=== PATIENT | female | born 1955 | race Caucasian/White ===

== ENCOUNTER 2018-12-08 21:48 | Inpatient (IN) | payer SELFPAY ==
[2018-12-08 21:54] VITALS: BMI 25.0
--- NOTE | 2018-12-08 22:18 | PDOC ---
History of Present Illness - General Chief Complaint: Pain Stated Complaint: ABD PAIN Time Seen by Provider: 12/08/18 22:17 - History of Present Illness Initial Comments: 12/08/18 22:18 Chad Mcfarlane margaret 63F with PMH HTN presenting with 3 days of nausea, bloating, and postprandial epigastric pain. Patient reports that she has had a new epigastric pain, bloating for the last 3 days, as well as nausea without vomiting. Pain comes and goes and is related to eating, worse after eating with radiation towards the throat but not to the back , also worse at night and when lying down. Denies chest pain, SOB, palpitations. Denies prior history of GERD. No previous cardiac history other than HTN, no DM or other PMH notable. Does not take any medications. No abd surgeries, last BM last night normal, no C/D. Meals this week include rice and shrimp, fried chicken, all of which triggered symptoms. Denies urinary sx, flank pain. NKDA. No medications taken for sx. Denies recent alcohol use, non-smoker, no drug use reported. Past History - Past Medical History Allergies/Adverse Reactions: Allergies Allergy/AdvReac Type Severity Reaction Status Date / Time No Known Allergies Allergy Verified 12/08/18 21:59 Home Medications: Ambulatory Orders Amlodipine Besylate 10 mg PO DAILY 12/09/18 Atenolol [Tenormin] 50 mg PO DAILY 12/09/18 - Psycho Social/Smoking Cessation Hx Smoking History: Never smoked Hx Alcohol Use: No Drug/Substance Use Hx: No Review of Systems - Review of Systems Able to Perform ROS?: Yes Is the patient limited [place]ian proficient: Yes Constitutional: No: Chills, Fever, Weakness HEENTM: No: Blurred Vision, Recent change in vision, Hearing Loss, Throat Pain Respiratory: No: Cough, Shortness of Breath Cardiac (ROS): No: Chest Pain, Lightheadedness, Palpitations ABD/GI: Yes: Nausea, Other (bloating, upper abdominal pain). No: Constipated, Diarrhea, Vomiting : No: Burning, Dysuria, Discharge, Frequency, Flank Pain, Hematuria, Incontinence Musculoskeletal: No: Symptoms Reported Integumentary: No: Symptoms Reported Neurological: No: Symptoms reported Endocrine: No: Symptoms Reported Hematologic/Lymphatic: No: Symptoms Reported All Other Systems: Reviewed and Negative *Physical Exam - Vital Signs Last Vital Signs Temp Pulse Resp BP Pulse Ox 97.8 F 75 19 141/70 99 12/08/18 21:51 12/08/18 21:51 12/08/18 21:51 12/08/18 21:51 12/08/18 21:51 - Physical Exam General Appearance: Yes: Nourished, Appropriately Dressed. No: Apparent Distress HEENT: positive: EOMI, FILIPE, Normal ENT Inspection, Symmetrical, Pharynx Normal , Hearing Grossly Normal. negative: Scleral Icterus (R), Scleral Icterus (L), Rhinorrhea Neck: positive: Supple. negative: Tender, Lymphadenopathy (R), Lymphadenopathy (L) Respiratory/Chest: positive: Lungs Clear, Normal Breath Sounds, Accessory Muscle Use. negative: Respiratory Distress Cardiovascular: positive: Regular Rhythm, Regular Rate. negative: Edema Gastrointestinal/Abdominal: positive: Normal Bowel Sounds, Tender (RUQ, epigastric, +Pappas sign, no rebound/guarding), Soft, Protuberent. negative: Organomegaly, Guarding, Rebound, Hernia Musculoskeletal: positive: Normal Inspection, CVA Tenderness Extremity: positive: Normal Capillary Refill, Normal Inspection, Normal Range of Motion. negative: Tender, Pedal Edema Integumentary: positive: Normal Color, Dry, Warm Neurologic: positive: Fully Oriented, Alert, Normal Mood/Affect, Normal Response ED Treatment Course - LABORATORY CBC & Chemistry Diagram: 12/09/18 10:11 12/09/18 08:45 Medical Decision Making - Medical Decision Making 12/08/18 22:18 Chad Chavez De Amaris margaret 63F with PMH HTN presenting with 3 days of nausea, bloating, and postprandial epigastric pain. Patient presentation of epigastric pain most concerning for AAA vs. pancreatitis vs. CA. However, most consistent with GERD vs. gallbladder pathology such as stones vs. cholangitis vs gallstone pancreatitis. Will evaluate via: ECG CXR CMP CBC lipase CP UA/UC Will give zofran, 1L NS, famotidine, protonix for nausea and epigastric pain. RUQ US for evaluation of gallbladder pathology. Patient afebrile, less likely to be acute cholangitis, more likely biliary colic vs GERD. 12/09/18 02:19 US results show distended gallbladder with stones, positive sono Pappas sign, no wall thickening or pericholecystic fluid, CBD 7mm not dilated for age. WBC is not elevated, patient does not have a fever. However, presence of stones, distension, and positive Pappas sign concerning for cholecystitis until proven otherwise. Requires admission for further evaluation of gallbladder disease and possible surgical planning for cholecystectomy. ECG shows sinus bradycardia., HR 58. Discharge - Discharge Information Problems reviewed: Yes Clinical Impression/Diagnosis: Epigastric pain, Nausea RUQ abdominal tenderness Qualifiers: Presence of rebound: absent Qualified Code(s): R10.811 - Right upper quadrant abdominal tenderness - Follow up/Referral - Patient Discharge Instructions - Post Discharge Activity
--- NOTE | 2018-12-08 22:28 | PDOC ---
Attending Attestation - Resident Resident Name: Hood Olson - ED Attending Attestation I have performed the following: I have examined & evaluated the patient, The case was reviewed & discussed with the resident, I agree w/resident's findings & plan, Exceptions are as noted - HPI HPI: 12/09/18 01:29 Mr Scott Mcfarlane is a 63F with PMH HTN presenting with 3 days of nausea, bloating, and postprandial epigastric pain. Pain is intermittent and is worse after eating Denies chest pain, SOB, palpitations. Denies prior history of GERD. No abd surgeries, last BM last night normal, no C/D. Denies urinary sx, flank pain. NKDA. No medications taken for sx. Denies recent alcohol use, non-smoker, no drug use reported. - Physicial Exam PE: 12/08/18 23:12 GENERAL: The patient is in no acute distress. ENT: Ears normal, nares patent, oropharynx clear without exudates. Moist mucous membranes. NECK: Normal range of motion, supple LUNGS: Breath sounds equal, clear to auscultation bilaterally. No wheezes, and no crackles. HEART:Regular rate and rhythm, normal S1 and S2 without murmur, rub or gallop. ABDOMEN: Soft, nontender, normoactive bowel sounds. EXTREMITIES: Normal range of motion, no edema. NEUROLOGICAL: Cranial nerves II through XII grossly intact. Normal speech. No focal neurological deficits. SKIN: Warm, Dry, normal turgor, no rashes or lesions noted. - Medical Decision Making 12/09/18 01:31 Laboratory Tests 12/08/18 12/08/18 12/08/18 23:40 23:40 23:40 WBC 5.7 Hgb 11.8 Hct 35.2 Plt Count 231 BUN 12.9 Creatinine 0.8 Total Bilirubin 0.4 AST 15 ALT 24 Creatine Kinase 65 Troponin I < 0.02 Lipase 213 U/S pending Signed out to Dr Carias
[2018-12-08] MEDS ORDERED: METOCLOPRAMIDE HCL INJECTION 10 MG/2 ML VIAL IVPB ONE (22:52)
[2018-12-08] MEDS ORDERED: FAMOTIDINE 20 MG/50 ML IVPB 20 MG/50 ML MG IVPB ONE ×2 (22:52→23:21)
[2018-12-08] MEDS ORDERED: SODIUM CHLORIDE 0.9% 500 ML INFUS.BAG IV ONE (22:52)
[2018-12-08] MEDS ORDERED: ONDANSETRON 4 MG/2 ML VIAL IVPB ONE (22:53)
[2018-12-08] MEDS ORDERED: PANTOPRAZOLE SODIUM 40 MG VIAL IVPUSH ONE (22:53)
[2018-12-08] MEDS ORDERED: ONDANSETRON 4 MG/2 ML VIAL ONE (23:21)
[2018-12-08] MEDS ORDERED: PANTOPRAZOLE SODIUM 40 MG/100 ML BAG IVPB ONE (23:21)
[2018-12-08 23:51] LABS: BASO % 1.2 % (0-2.0); EOS % 1.4 % (0-4.5); HEMATOCRIT 35.2 % (32.4-45.2); HEMOGLOBIN 11.8 GM/dL (10.7-15.3); LYMPH % 21.9 % (8-40); MCH 29.5 pg (25.7-33.7); MCHC 33.5 g/dl (32.0-36.0); MEAN CELL VOLUME 88.2 fl (80-96); MEAN PLT VOLUME 10.3 fl (7.5-11.1); MONO % 6.1 % (3.8-10.2); NEUT % 69.4 % (42.8-82.8); PLATELET COUNT 231 K/MM3 (134-434); RBC 3.99 M/mm3 (3.60-5.2); RDW 13.3 % (11.6-15.6); WHITE BLOOD COUNT 5.7 K/mm3 (4.0-10.0)
[2018-12-09] MEDS ORDERED: ONDANSETRON 4 MG/2 ML VIAL IVPUSH ONE (00:08)
[2018-12-09 00:14] LABS: ALBUMIN 3.6 g/dl (3.4-5.0); BILIRUBIN,TOTAL 0.4 mg/dL (0.2-1); BLOOD UREA NITROGEN 12.9 mg/dL (7-18); CALCIUM 8.5 mg/dL (8.5-10.1); CREATININE 0.8 mg/dL (0.55-1.3); POTASSIUM 4.1 mmol/L (3.5-5.1)
[2018-12-09 00:16] LABS: LIPASE 213 U/L (73-393)
--- NOTE | 2018-12-09 04:44 | PN ---
Teaching Attending Note Name of Resident: Delisa Arreola ATTENDING PHYSICIAN STATEMENT I saw and evaluated the patient. I reviewed the resident's note and discussed the case with the resident. I agree with the resident's findings and plan as documented. SUBJECTIVE: Patient is a 63 year old woman with a PMH of HTN presenting with 3 days of nausea, bloating, and postprandial epigastric pain. Pain comes and goes and is related to eating, worse after eating with radiation towards the throat but not to the back, also worse at night and when lying down. No FH of premature CAD. Patient does not take any medications and has not had abdominal surgeries. Last BM was last night and was normal. Meals this week include rice and shrimp, fried chicken, all of which triggered symptoms. Denies vomiting, chest pain, SOB , palpitations, fever, chills, dysuria, frequency, diarrhea, diaphoresis or headache. Denies prior history of GERD. Did not take any medications. No recent travel or sick contacts and did'not eat street or stale food. Denies tobacco use , alcohol or illicit drug abuse. OBJECTIVE: Alert Vital Signs Period Temp Pulse Resp BP Sys/Kay Pulse Ox Last 24 Hr 97.8 F 75 19 141/70 99 HEENT: No Jaundice, eye redness or discharge, PERRLA, EOMI. Normocephalic, atraumatic. External ears are normal and hearing is grossly intact. No nasal discharge. Neck: Supple, nontender. No palpable adenopathy or thyromegaly. No JVD Chest: Good effort. Clear to auscultation and percussion. Heart: Regular. No S3, rub or murmur Abdomen: Not distended, soft, mild RUQ and epigastric tenderness on deep palpation; no HSM. No rebound or guarding. Normal bowel sounds. Ext: Peripheral pulses intact. No leg edema. Skin: Warm and dry. No petechiae, rash or ecchymosis. Neuro: Alert. Oriented x3. CN 2-12 grossly intact. Sensation grossly intact in all four extremities and DTR are symmetric. Psych: Appropriate mood and affect. Good insight. Abnormal Lab Results 12/08/18 23:40 Chloride 112 H Anion Gap 6 L Random Glucose 112 H ASSESSMENT AND PLAN: 1. Cholecystitis - Sonogram shows distended gallbladder with stones and CBD is not dilated. Will get a HIDA scan, treat with IV Zofran, Protonix and Simethicone. Will consult GI and Surgery. Patient is afebrile and does not have leukocytosis - will withhold antibiotics for now. CXR shows cardiomegaly with increased interstitial marking. Will continue comprehensive care for all of patients comorbid conditions. 2. Obesity Counseled on the risks associated with obesity. Will provide patient all the necessary assistance, counseling and positive reinforcement to facilitate weight loss. Consult [facility]. 3. Hypertension - Restart suitable outpatient antihypertensive drugs when clinically appropriate. Revise regimen to ensure [id number] excellent BP control and pre parole counseling aide patient on the injurious effects of uncontrolled hypertension. Nonpharmacologic measures to control hypertension like weight loss , salt restriction and exercise discussed. Importance of adherence to treatment regimen and attainment of normotension emphasized. 4. DVT prophylaxis - SCD 5. Advance directives - Full code
[2018-12-09] MEDS ORDERED: ACETAMINOPHEN 325 MG TABLET (FP) PO PRN (05:55)
--- NOTE | 2018-12-09 06:03 | HP ---
CHIEF COMPLAINT: abdominal pain PCP: HISTORY OF PRESENT ILLNESS: Patient is a 63 y/o female with a history of HTN who presents for abdominal pain. The pain has been going on for two weeks. The pain comes and goes, sometimes it is associated with food but sometimes it is not. She reports she has never had this pain in the past. THe pain is mid epigastric and moves up midsternally and the pain is also in the RUQ, that pain does not radiate. She reports she eats a normal diet. She denies nausea, vomiting, dysuria, hematuria , headache, or shortness of breath. ER course was notable for: (1) (2) (3) Recent Travel: denies PAST MEDICAL HISTORY: HTN PAST SURGICAL HISTORY: C section Social History: Smoking: denies Alcohol: a few beers a week Drugs: denies Allergies No Known Allergies Allergy (Verified 12/08/18 21:59) HOME MEDICATIONS: REVIEW OF SYSTEMS CONSTITUTIONAL: Absent: fever, chills, diaphoresis, generalized weakness, malaise, loss of appetite, weight change HEENT: Absent: rhinorrhea, nasal congestion, throat pain, throat swelling, difficulty swallowing, mouth swelling, ear pain, eye pain, visual changes CARDIOVASCULAR: Absent: chest pain, syncope, palpitations, irregular heart rate, lightheadedness , peripheral edema RESPIRATORY: Absent: cough, shortness of breath, dyspnea with exertion, orthopnea, wheezing, stridor, hemoptysis GASTROINTESTINAL:abdominal pain, Absent: abdominal distension, nausea, vomiting, diarrhea, constipation, melena , hematochezia GENITOURINARY: Absent: dysuria, frequency, urgency, hesitancy, hematuria, flank pain, genital pain MUSCULOSKELETAL: Absent: myalgia, arthralgia, joint swelling, back pain, neck pain SKIN: Absent: rash, itching, pallor HEMATOLOGIC/IMMUNOLOGIC: Absent: easy bleeding, easy bruising, lymphadenopathy, frequent infections ENDOCRINE: Absent: unexplained weight gain, unexplained weight loss, heat intolerance, cold intolerance NEUROLOGIC: Absent: headache, focal weakness or paresthesias, dizziness, unsteady gait, seizure, mental status changes, bladder or bowel incontinence PSYCHIATRIC: Absent: anxiety, depression, suicidal or homicidal ideation, hallucinations. PHYSICAL EXAMINATION Vital Signs - 24 hr 12/08/18 12/09/18 21:51 05:52 Temperature 97.8 F Pulse Rate 75 Pulse Rate [ 73 Right] Respiratory 19 18 Rate Blood Pressure 141/70 Blood Pressure 145/73 [Right Arm] O2 Sat by Pulse 99 100 Oximetry (%) GENERAL: Awake, alert, and fully oriented, in no acute distress. obese HEAD: Normal with no signs of trauma. EYES: Pupils equal, round and reactive to light, extraocular movements intact, EARS, NOSE, THROAT: Moist mucous membranes. LUNGS: Breath sounds equal, clear to auscultation bilaterally. No wheezes, and no crackles. No accessory muscle use. HEART: Regular rate and rhythm, normal S1 and S2 without murmur, rub or gallop. ABDOMEN: Soft,, not distended, normoactive bowel sounds, tendedrness to deep palpation in mid epigastric and RUQ MUSCULOSKELETAL: Normal range of motion at all joints. LOWER EXTREMITIES: 2+ pulses, warm, well-perfused. No calf tenderness. No peripheral edema. SKIN: Warm, dry, normal turgor, no rashes or lesions noted, normal capillary refill. Laboratory Results - last 24 hr ASSESSMENT/PLAN: Patient is a 63 y/o female with a history of HTN who presents for abdominal pain. #abdominal pain - likely 2/2 to cholecystitis - US: distended gallbladder, no wall thickening or pericholecystic fluid, CBD 7 mm not dilated - f/u HIDA - tylenol prn for pain - zofran prn for nausea QTC 400 - f/u surgery - f/u GI #HTN - reconcile meds and then restart DVT PPX - SCD's, AC held in case of any surgery FEN - NPO in setting of abdominal pain and for any possible surgeries DIspo: monitor on med surg Visit type - Emergency Visit Emergency Visit: Yes ED Registration Date: 12/09/18 Care time: The patient presented to the Emergency Department on the above date and was hospitalized for further evaluation of their emergent condition. - New Patient This patient is new to me today: Yes Date on this admission: 12/10/18 - Critical Care Critical Care patient: No ATTENDING PHYSICIAN STATEMENT I saw and evaluated the patient. I reviewed the resident's note and discussed the case with the resident. I agree with the resident's findings and plan as documented. SUBJECTIVE: OBJECTIVE: ASSESSMENT AND PLAN:
[2018-12-09] MEDS ORDERED: PNEUMOC 13-VAL CONJ-DIP CRM/PF 0.5 ML DISP.SYRIN IM ONE (06:56)
[2018-12-09] MEDS: LACTATED RINGERS SOLUTION 1,000 ML IV SCH (09:28)
[2018-12-09] MEDS ORDERED: PNEUMOCOCCAL 23 VACCINE 0.5 ML VIAL IM ONE (10:00)
[2018-12-09] MEDS ORDERED: FLU VACCINE QUAD 60 MCG/0.5 ML (MDV 19-20) IM ONE (10:00)
[2018-12-09 10:28] LABS: ALBUMIN 3.6 g/dl (3.4-5.0); BILIRUBIN,TOTAL 0.7 mg/dL (0.2-1); BLOOD UREA NITROGEN 7.4 mg/dL (7-18); CREATININE 0.8 mg/dL (0.55-1.3); MAGNESIUM 2.5 mg/dL (1.8-2.4); PHOSPHOROUS 3.1 mg/dL (2.5-4.9); POTASSIUM 4.4 mmol/L (3.5-5.1)
[2018-12-09 10:29] LABS: PH,URINE 8.5 (5.0-8.0); URINE APPEARANCE CLEAR; URINE BILIRUBIN NEGATIVE (NEGATIVE); URINE COLOR YELLOW; URINE GLUCOSE (UA) NEGATIVE (NEGATIVE); URINE KETONE NEGATIVE (NEGATIVE); URINE LEUK ESTERASE NEGATIVE (NEGATIVE); URINE NITRITE NEGATIVE (NEGATIVE); URINE PROTEIN NEGATIVE (NEGATIVE); URINE UROBILINOGEN 0.2 mg/dL (0.2-1.0)
--- NOTE | 2018-12-09 11:11 | CONSULT ---
- Consultation REQUESTING PROVIDER: Franklyn MORIN CONSULT REQUEST: We have been asked to surgically evaluate this patient for RUQ abdominal pain. PCP:Daysi Estes HISTORY OF PRESENT ILLNESS: CTSP who is a 63F with who presented with 3 days of progressive nausea, bloating, and postprandial epigastric pain. Pain is intermittent and is worse after eating. No dark urine/light stools; she has never had this before; she denies any other GI//ROLL SETTER c/o's. PMHx: HTN PSHx: none Home Medications Medication Instructions Recorded Atenolol [Tenormin] 50 mg PO DAILY 12/09/18 Allergies Allergy/AdvReac Type Severity Reaction Status Date / Time No Known Allergies Allergy Verified 12/08/18 21:59 REVIEW OF SYSTEMS: CONSTITUTIONAL: Absent: fever, chills, diaphoresis, generalized weakness, malaise, loss of appetite, weight change CARDIOVASCULAR: Absent: chest pain, syncope, palpitations, irregular heart rate, lightheadedness , peripheral edema RESPIRATORY: Absent: cough, shortness of breath, dyspnea with exertion, wheezing, stridor, hemoptysis GASTROINTESTINAL: Present: abdominal pain, abdominal distension, nausea, vomiting. GENITOURINARY: Absent: dysuria, frequency, urgency, hesitancy, hematuria, flank pain, genital pain MUSCULOSKELETAL: Absent: myalgia, arthralgia, joint swelling, back pain, neck pain SKIN: Absent: rash, itching, pallor HEMATOLOGIC/IMMUNOLOGIC: Absent: easy bleeding, easy bruising, lymphadenopathy NEUROLOGIC: Absent: headache, focal weakness, paresthesias, dizziness, unsteady gait, seizure, mental status changes, bladder or bowel incontinence PSYCHIATRIC: Absent: anxiety, depression, suicidal or homicidal ideation, hallucinations. PHYSICAL EXAM: GENERAL: Awake, alert, and fully oriented, in no acute distress. HEAD: Normal with no signs of trauma. EYES: sclera anicteric, conjunctiva clear. NECK: Normal ROM, supple without lymphadenopathy, JVD, or masses. ABDOMEN: Soft, minimal RUQ tenderness, not distended, normoactive bowel sounds, no guarding, no rebound, no masses. No organomegaly. No hernias and/or scars MUSCULOSKELETAL: Normal ROM at all joints. No bony deformities or tenderness. No CVA tenderness. UPPER EXTREMITIES: 2+ pulses, warm, well-perfused. No cyanosis. Cap refill <2 seconds. No peripheral edema. LOWER EXTREMITIES: 2+ pulses, warm, well-perfused. No calf tenderness. No peripheral edema. NEUROLOGICAL: Normal speech, gait not observed. PSYCH: Cooperative. Good eye contact. Appropriate mood and affect. SKIN: Warm, dry, normal turgor, no rashes or lesions noted. Vital Signs Temperature 97.7 F 12/09/18 05:55 Pulse Rate 58 L 12/09/18 05:55 Respiratory Rate 18 12/09/18 06:00 Blood Pressure 153/84 12/09/18 05:55 O2 Sat by Pulse Oximetry (%) 100 12/09/18 06:00 Lab Results WBC 5.7 K/mm3 (4.0-10.0) 12/08/18 23:40 RBC 3.99 M/mm3 (3.60-5.2) 12/08/18 23:40 Hgb 11.8 GM/dL (10.7-15.3) 12/08/18 23:40 Hct 35.2 % (32.4-45.2) 12/08/18 23:40 MCV 88.2 fl (80-96) 12/08/18 23:40 MCHC 33.5 g/dl (32.0-36.0) 12/08/18 23:40 RDW 13.3 % (11.6-15.6) 12/08/18 23:40 Plt Count 231 K/MM3 (134-434) 12/08/18 23:40 Sodium 144 mmol/L (136-145) 12/09/18 08:45 Potassium 4.4 mmol/L (3.5-5.1) 12/09/18 08:45 Chloride 111 mmol/L (98-107) H 12/09/18 08:45 Carbon Dioxide 26 mmol/L (21-32) 12/09/18 08:45 Anion Gap 7 MMOL/L (8-16) L 12/09/18 08:45 BUN 7.4 mg/dL (7-18) 12/09/18 08:45 Creatinine 0.8 mg/dL (0.55-1.3) 12/09/18 08:45 Random Glucose 91 mg/dL (74-106) 12/09/18 08:45 Calcium 9.0 mg/dL (8.5-10.1) 12/09/18 08:45 US reviewed and c/w cholelithiasis and acute cholecystitis IMP: acute cholecystitis/cholelithiasis PLAN: Lap meena possible open 12/10/18; r/b/t/a's d/w the patient in Mongolian and she is amenable to this and will give informed consent; may have clear liquids today and NPO after MN. Continue IVF and IVAB's. Chris Csatle MD FACS
[2018-12-09 11:15] LABS: BASO % 1.3 % (0-2.0); EOS % 1.2 % (0-4.5); LYMPH % 28.4 % (8-40); MCH 30.1 pg (25.7-33.7); MCHC 34.4 g/dl (32.0-36.0); MEAN CELL VOLUME 87.5 fl (80-96); MEAN PLT VOLUME 10.4 fl (7.5-11.1); NEUT % 64.1 % (42.8-82.8); PLATELET COUNT 239 K/MM3 (134-434); RDW 13.5 % (11.6-15.6); WHITE BLOOD COUNT 5.2 K/mm3 (4.0-10.0)
[2018-12-09] MEDS ORDERED: CEFTRIAXONE 1 GM in DEXTROSE 5%-WATER - 50 ML IVPB ONE (11:17)
[2018-12-09] MEDS ORDERED: cefTRIAXone SODIUM 1 GM VIAL ONE (12:44)
[2018-12-09] MEDS ORDERED: DEXTROSE 5%-WATER - 50 ML IVPB ONE (12:44)
--- NOTE | 2018-12-09 15:14 | PN ---
Progress Note, Physician Chief Complaint: Cholecystitis Abdominal Pain History of Present Illness: Previous notes and events reviewed awake and alert NAD sts abdominal pain is improving denies chest pain or SOB - Current Medication List Current Medications: Active Medications Acetaminophen (Tylenol -) 650 mg PO Q4H PRN PRN Reason: PAIN Lactated Ringer's (Lactated Ringers Solution) 1,000 mls @ 75 mls/hr IV ASDIR WILFRED Last Admin: 12/09/18 09:28 Dose: 75 mls/hr Metronidazole (Flagyl 500mg Premixed Ivpb -) 500 mg in 100 mls @ 100 mls/hr IVPB Q6H-IV WILFRED - Objective Vital Signs: Vital Signs Temperature 98.4 F 12/09/18 14:46 Pulse Rate 56 L 12/09/18 14:46 Respiratory Rate 18 12/09/18 14:46 Blood Pressure 135/62 12/09/18 14:46 O2 Sat by Pulse Oximetry (%) 100 12/09/18 09:00 Constitutional: Yes: No Distress, Calm Eyes: Yes: Conjunctiva Clear HENT: Yes: Atraumatic Cardiovascular: Yes: Regular Rate and Rhythm Respiratory: Yes: Regular, CTA Bilaterally Gastrointestinal: Yes: Normal Bowel Sounds, Soft, Tenderness (mild, diffuse) Musculoskeletal: Yes: WNL Extremities: Yes: WNL Edema: No Neurological: Yes: Alert, Oriented Psychiatric: Yes: Alert, Oriented Labs: CBC, BMP 12/09/18 10:11 12/09/18 08:45 Problem List - Problems (1) HTN (hypertension) Assessment/Plan: -Norvasc, Atenolol -cardiac clearance for cholecystectomy Code(s): I10 - ESSENTIAL (PRIMARY) HYPERTENSION (2) Epigastric pain Assessment/Plan: -GI and Surgery on board -Abd US shows gallbladder is distended and contains multiple stones, positive sonographic murphys sign -NPO -IV hydration -Lipase 213 -possible Lap Cholecsytectomy on 12/10/18 -Metronidazole Code(s): R10.13 - EPIGASTRIC PAIN Assessment/Plan see problem list dvt ppx
[2018-12-09] MEDS ORDERED: METOPROLOL TARTRATE 5 MG/5 ML VIAL IVPB PRN (15:16)
--- NOTE | 2018-12-09 16:47 | EKG ---
Test Reason : Blood Pressure : / mmHG Vent. Rate : 058 BPM Atrial Rate : 058 BPM P-R Int : 190 ms QRS Dur : 074 ms QT Int : 408 ms P-R-T Axes : 038 010 015 degrees QTc Int : 400 ms SINUS BRADYCARDIA OTHERWISE NORMAL ECG WHEN COMPARED WITH ECG OF 18-APR-2008 08:33, NO SIGNIFICANT CHANGE WAS FOUND Confirmed by BASHIR MARK MD ([id number]) on 12/09/2018 4:47:25 PM Referred By: Confirmed By:BASHIR MARK MD
--- NOTE | 2018-12-09 17:14 | CONS ---
GASTROINTESTINAL CONSULTATION DATE OF CONSULTATION: DATE OF DICTATION: 12/09/2018 HISTORY: Patient is a 63-year-old female with past medical history of hypertension and section who presents to the hospital with right upper quadrant epigastric abdominal pain, which has been intermittent over the past couple of weeks. The pain is exacerbated with p.o. intake. She denies any nausea or vomiting. No fevers or chills at home and no change in her bowel habit. She has never had an upper endoscopy or colonoscopy in the past. She does deny any melena, hematochezia, or weight loss. She has never had similar symptoms in the past. PAST MEDICAL HISTORY: As per the HPI. PAST SURGICAL HISTORY: As per the HPI. ALLERGIES: No known drug allergies. SOCIAL HISTORY: Does not smoke. Drinks a few beers a week. No drug use. HOME MEDICATIONS: Reviewed. REVIEW OF SYSTEMS: As per the HPI. FAMILY HISTORY: No history of GI or gynecological malignancy. PHYSICAL EXAMINATION: Vital Signs: Temperature 98, pulse 56, blood pressure 135/62, respiratory rate 18, oxygen saturation 100% on room air. General: In no acute distress. HEENT: Anicteric sclerae. Cardiovascular: S1, S2. Regular rate and rhythm. Lungs: Bilaterally clear to auscultation. Abdomen: Tender in the epigastrium and right upper quadrant without rebound or guarding. Extremities: No edema. LABORATORIES: White blood cell count 5.2, hemoglobin 12, hematocrit 35, MCV 87, platelet count 239. Sodium 144, potassium 4.4, BUN 7.4, creatinine 0.8, total bilirubin 0.7, AST 18, ALT 24, alkaline phosphatase 69, lipase 213. She had an ultrasound, which revealed a distended gallbladder with multiple gallstones, positive Pappas sign. Common bile duct is 7 mm. IMPRESSION: Right upper quadrant epigastric abdominal pain with imaging findings suspicious for acute cholecystitis. RECOMMENDATION: N.p.o. IV fluids. We would start this patient on Levaquin and Flagyl therapy. Surgery consultation for potential cholecystectomy. Patient will be followed by GI service. DO WILLIAM BLUE/[id number]
[2018-12-09] MEDS ORDERED: ATENOLOL 50 MG TABLET (FP) PO ONE (18:15)
[2018-12-09] MEDS ORDERED: amLODIPine BESYLATE 10 MG TABLET (FP) PO ONE (18:15)
--- NOTE | 2018-12-10 08:43 | PN ---
Progress Note, Physician Chief Complaint: EVENTS AND NOTES REVIEWED PT IN BED COMFORTABLE NO FEVERS - Current Medication List Current Medications: Active Medications Acetaminophen (Tylenol -) 650 mg PO Q4H PRN PRN Reason: PAIN Amlodipine Besylate (Norvasc -) 10 mg PO DAILY WILFRED Atenolol (Tenormin -) 50 mg PO DAILY WILFRED Lactated Ringer's (Lactated Ringers Solution) 1,000 mls @ 75 mls/hr IV ASDIR WILFRED Last Admin: 12/09/18 09:28 Dose: 75 mls/hr Metronidazole (Flagyl 500mg Premixed Ivpb -) 500 mg in 100 mls @ 100 mls/hr IVPB Q6H-IV WILFRED Last Admin: 12/10/18 03:07 Dose: 100 mls/hr - Objective Vital Signs: Vital Signs Temperature 97.7 F 12/10/18 06:26 Pulse Rate 53 L 12/10/18 06:26 Respiratory Rate 18 12/10/18 06:26 Blood Pressure 124/73 12/10/18 06:26 O2 Sat by Pulse Oximetry (%) 98 12/09/18 21:00 Constitutional: Yes: No Distress Cardiovascular: Yes: WNL Respiratory: Yes: WNL Gastrointestinal: Yes: Tenderness (BUSH SIGN POSITIVE) Genitourinary: Yes: WNL Musculoskeletal: Yes: WNL Extremities: Yes: WNL Edema: No Peripheral Pulses WNL: Yes Integumentary: Yes: WNL Wound/Incision: Yes: Clean/Dry Neurological: Yes: WNL ...Motor Strength: WNL Psychiatric: Yes: WNL Labs: CBC, BMP 12/09/18 10:11 12/09/18 08:45 Problem List - Problems (1) Cholelithiases Code(s): K80.20 - CALCULUS OF GALLBLADDER W/O CHOLECYSTITIS W/O OBSTRUCTION (2) Epigastric pain Code(s): R10.13 - EPIGASTRIC PAIN (3) HTN (hypertension) Code(s): I10 - ESSENTIAL (PRIMARY) HYPERTENSION (4) Nausea Code(s): R11.0 - NAUSEA (5) RUQ abdominal tenderness Code(s): R10.811 - RIGHT UPPER QUADRANT ABDOMINAL TENDERNESS Qualifiers: Presence of rebound: absent Qualified Code(s): R10.811 - Right upper quadrant abdominal tenderness Assessment/Plan PATIENT HAS NO CONTRAINDICATION FOR SURGERY LAPCHOL WITH DR LATHAM PT HAS NO PREVIOUS HX OF SURGERY DVT PROPHYLAXIS OOB TO CHAIR NPO IVF PAIN CONTROL
[2018-12-10] MEDS: LACTATED RINGERS SOLUTION 1,000 ML IV SCH ×2 (08:54→12:15)
[2018-12-10] MEDS ORDERED: BUPIVACAINE HCL/PF 0.5% (5 MG/ML) 30 ML VIAL IJ ONE (09:11)
[2018-12-10] MEDS ORDERED: amLODIPine BESYLATE 10 MG TABLET (FP) PO SCH (10:00)
[2018-12-10] MEDS ORDERED: ATENOLOL 50 MG TABLET (FP) PO SCH (10:00)
[2018-12-10] MEDS ORDERED: ROCURONIUM BROMIDE 50 MG/5 ML SYRINGE ONE (10:02)
[2018-12-10] MEDS ORDERED: fentaNYL CITRATE 250 MCG/5 ML VIAL ONE ×2 (10:02)
[2018-12-10] MEDS ORDERED: DEXAMETHASONE SOD PHOSPHATE 4 MG/1 ML VIAL ONE (10:02)
[2018-12-10] MEDS ORDERED: LIDOCAINE HCL/PF 2% SDV 5ML VIAL ONE (10:02)
[2018-12-10] MEDS ORDERED: KETOROLAC TROMETHAMINE 30 MG/1 ML VIAL ONE (10:02)
[2018-12-10] MEDS ORDERED: ONDANSETRON 4 MG/2 ML VIAL ONE (10:02)
[2018-12-10] MEDS ORDERED: PROPOFOL 20 ML ONE ×2 (10:02)
[2018-12-10] MEDS ORDERED: MIDAZOLAM HCL 2 MG/2 ML SINGLE DOSE VIAL ONE (10:03)
[2018-12-10] MEDS ORDERED: BUPIVACAINE HCL/PF 0.5% (5MG/ML) 10 ML VIAL NR ONE (11:12)
[2018-12-10] MEDS ORDERED: GLYCOPYRROLATE 0.2 MG/1 ML VIAL ONE ×2 (11:20)
[2018-12-10] MEDS ORDERED: NEOSTIGMINE METHYLSULFATE 0.5 MG/1 ML - 10 ML MDV ONE (11:20)
--- NOTE | 2018-12-10 11:23 | OP ---
Operative Note - Note: Operative Date: 12/10/18 Pre-Operative Diagnosis: acute cholecystitis/cholelithiasis Operation: laparoscopic cholecystectomy Findings: acute cholecystitis and cholellithiasis Post-Operative Diagnosis: Same as Pre-op Surgeon: Chris Castle Associate Chemist: Bartolo Nicholas Anesthesiologist/FOREPART ROUNDER: Rory Glynn Anesthesia: General Specimens Removed: gallbladder and contents Estimated Blood Loss (mls): 20 Drains & Tubes with Location: none
--- NOTE | 2018-12-10 11:39 | SURG ---
Surgery Tricot Knitter Note Tricot Knitter: Bartolo Nicholas PA-C Date of Service: 12/10/18 Diagnosis: Acute cholecystitis Procedure: Laproscopic cholecystectomy I was present for the entirety of the operative procedure. For further detail, please refer to operative report. Visit type - Case Type Case Type: ED Admission - Emergency Emergency Visit: Yes ED Registration Date: 12/09/18 Care time: The patient presented to the Emergency Department on the above date and was hospitalized for further evaluation of their emergent condition. - New patient This patient is new to me today: Yes Date on this admission: 12/10/18 - Critical Care Critical Care patient: No
[2018-12-10] MEDS ORDERED: ONDANSETRON 4 MG/2 ML VIAL IVPUSH PRN (11:40)
[2018-12-10] MEDS ORDERED: oxyCODONE HCL 5 MG TABLET PO PRN ×2 (11:40→11:44)
[2018-12-10] MEDS ORDERED: PROMETHAZINE HCL 25 MG/1 ML VIAL IVPB PRN (11:40)
[2018-12-10] MEDS ORDERED: ACETAMINOPHEN 325 MG TABLET (FP) PO PRN (11:50)
--- NOTE | 2018-12-10 11:56 | OP ---
DATE OF OPERATION: 12/10/2018 PREOPERATIVE DIAGNOSIS: Acute cholecystitis and cholelithiasis. POSTOPERATIVE DIAGNOSIS: Acute cholecystitis and cholelithiasis. PROCEDURE: Laparoscopic cholecystectomy. SURGEON: Chris Castle MD RENDERER: Bartolo Nicholas PA-C ANESTHESIA: General. OPERATIVE FINDINGS: Acute cholecystitis and cholelithiasis. The rest of the findings are unremarkable. DESCRIPTION OF PROCEDURE: The patient was placed on the operating room table in supine position. After the induction of general anesthesia, the patient's abdomen was prepped with ChloraPrep and draped in sterile fashion. Time-out was taken and then pneumoperitoneum established above the umbilicus using a Veress needle. Once 15 mm of intra-abdominal pressure was obtained, a 5-mm port was placed at the umbilicus. Additional lateral 5-mm ports and a subxiphoid 12-mm port were placed and laparoscopy carried out, and the previously noted findings were observed. The gallbladder was placed on cephalad and lateral traction, and dissection was begun at the neck of the gallbladder where the peritoneum was opened medially and laterally using blunt and sharp dissection and electrocautery. Dissection continued in the triangle of Calot where the cystic duct was identified coursing from the neck of the gallbladder distally to the common bile duct. It was dissected proximally and distally for length. Similarly, the artery was similarly identified and dissected. A critical view of safety was taken, and then the cystic duct divided proximally and distally using Endo Daniel after it was clipped twice proximally and distally with large hemoclips. The artery was similarly clipped and divided. Hemostasis was checked for and noted to be good and then the gallbladder was removed from the liver bed in a retrograde fashion using electrocautery. Prior to removal from the edge of the liver, hemostasis was again verified and then the gallbladder removed from the edge of the liver, placed in an EndoCatch, and brought out through the subxiphoid port. Pneumoperitoneum was reestablished, hemostasis verified again, and then the 5-mm lateral and subxiphoid ports were removed under laparoscopic vision without evidence of bleeding from the port sites. The umbilical port was removed and the pneumoperitoneum evacuated. All port sites were infiltrated with 0.5% Marcaine and the skin edges closed with 4-0 Biosyn in a subcuticular and continuous fashion. Steri-Strips and Band-Aid dressings were placed and the procedure terminated at this point and the patient aroused from general anesthesia and transferred to the post anesthesia care unit in stable condition awake and alert. ESTIMATED BLOOD LOSS: 20 mL. REPLACEMENTS: Crystalloid. DRAINS: None. SPECIMENS: Gallbladder and contents to pathology. I, Chris Castle, was physically present in the operating room from the time the patient was placed on the operating room table until she was transferred to the post anesthesia care unit in my company. MD DIANA Pedroza/[id number] MTDD
--- NOTE | 2018-12-10 15:08 | PN ---
Progress Note (short form) - Note Progress Note: Called for preop however pt already post op from cholecystectomy for acute cholecystitis. As per report tolerated surgery well from a cardiac standpoint. BP adequately controlled on current regimen. Will see as needed. Please call if there are additional questions.
[2018-12-11 06:35] LABS: HEMATOCRIT 33.5 % (32.4-45.2); HEMOGLOBIN 11.8 GM/dL (10.7-15.3); MCH 30.5 pg (25.7-33.7); MCHC 35.2 g/dl (32.0-36.0); MEAN CELL VOLUME 86.7 fl (80-96); MEAN PLT VOLUME 10.4 fl (7.5-11.1); PLATELET COUNT 242 K/MM3 (134-434); RBC 3.86 M/mm3 (3.60-5.2); RDW 13.4 % (11.6-15.6); WHITE BLOOD COUNT 8.5 K/mm3 (4.0-10.0)
[2018-12-11 06:55] LABS: BLOOD UREA NITROGEN 12.2 mg/dL (7-18); CREATININE 0.8 mg/dL (0.55-1.3); POTASSIUM 4.1 mmol/L (3.5-5.1)
--- NOTE | 2018-12-11 07:45 | PN ---
Progress Note (short form) - Note Progress Note: Surgery POD #1 Lap meena patient seen and examined at bedside. Patient states she is having gas pain but otherwise comfortable. She has been OOB to void and tolerating clears. She denies any CP, SOB, N/V, fever or chills. Vital Signs Temp 98.1 F 12/11/18 06:12 Pulse 57 L 12/11/18 06:12 Resp 18 12/11/18 06:12 BP 147/71 12/11/18 06:12 Pulse Ox 98 12/10/18 21:00 Intake & Output 12/10/18 12/10/18 12/11/18 11:59 23:59 11:59 Intake Total 2200 700 300 Balance 2200 700 300 Intake: IV 2100 500 Lactated Ringers Solution 600 300 1,000 ml @ 75 mls/hr IV ASDIR WILFRED Rx#:[id number] IVPB 100 Oral 200 300 Other: Voiding Method Toilet Toilet CBC, BMP 12/11/18 05:30 12/11/18 05:30 PE: A&Ox3, NAD Unlabored resp on RA ABD: Obese, soft, NT/ND with dressing c/d/i, surrounding tissue intact with no erythema or d/c B/L LE compartments soft, supple and non-tender with +2 Pulses. Problem List - Problems (1) S/P laparoscopic cholecystectomy Assessment/Plan: POD #1 doing well with some gas pain. -Advance diet to regular -Encourage OOB as tolerated, ambulation will help to mitigate gas pain -Encourage daily IS -Simethicone PRN gas pain Code(s): Z90.49 - ACQUIRED ABSENCE OF OTHER SPECIFIED PARTS OF DIGESTIVE TRACT
[2018-12-11] MEDS: amLODIPine BESYLATE 10 MG TABLET (FP) PO SCH (10:18)
[2018-12-11] MEDS: ATENOLOL 50 MG TABLET (FP) PO SCH (10:18)
--- NOTE | 2018-12-11 10:37 | PN ---
Progress Note (short form) - Note Progress Note: 63 F s/p GA for lap meena pt feels well. pain controlled. good result anesthetic care. cont current meds and plan
--- NOTE | 2018-12-11 13:49 | PN ---
Progress Note, Physician Chief Complaint: Cholecystitis Abdominal Pain History of Present Illness: Previous notes and events reviewed awake and alert NAD POD #1 Lap Cholecystectomy complain of feeling "full" denies passing flatus or BM - Current Medication List Current Medications: Active Medications Acetaminophen (Tylenol -) 650 mg PO Q4H PRN PRN Reason: PAIN Amlodipine Besylate (Norvasc -) 10 mg PO DAILY [facility] Last Admin: 12/11/18 10:18 Dose: 10 mg Atenolol (Tenormin -) 50 mg PO DAILY [facility] Last Admin: 12/11/18 10:18 Dose: 50 mg Fentanyl (Sublimaze Injection -) 50 mcg IVPUSH [id number] PRN PRN Reason: PAIN-PACU ORDER X 4 DOSES ONLY Lactated Ringer's (Lactated Ringers Solution) 1,000 mls @ 75 mls/hr IV ASDIR [facility] Last Admin: 12/10/18 12:15 Dose: 75 mls/hr Ondansetron HCl (Zofran Injection) 4 mg IVPUSH Q6H PRN PRN Reason: NAUSEA AND/OR VOMITING Oxycodone HCl (Roxicodone -) 5 mg PO Q4H PRN PRN Reason: PAIN LEVEL 6-10 Last Admin: 12/10/18 20:37 Dose: 5 mg Promethazine HCl (Phenergan Injection -) 12.5 mg IVPB Q6H PRN PRN Reason: NAUSEA-FOR RESCUE AFTER 15 MIN Simethicone (Mylicon -) 80 mg PO Q4H PRN PRN Reason: GAS - Objective Vital Signs: Vital Signs Temperature 98.1 F 12/11/18 06:12 Pulse Rate 57 L 12/11/18 06:12 Respiratory Rate 18 12/11/18 09:00 Blood Pressure 147/71 12/11/18 06:12 O2 Sat by Pulse Oximetry (%) 98 12/11/18 09:00 Constitutional: Yes: No Distress, Calm Eyes: Yes: Conjunctiva Clear HENT: Yes: Atraumatic Cardiovascular: Yes: Regular Rate and Rhythm Respiratory: Yes: Regular, CTA Bilaterally Gastrointestinal: Yes: Normal Bowel Sounds, Soft Musculoskeletal: Yes: WNL Extremities: Yes: WNL Edema: No Wound/Incision: Yes: Dressing Dry and Intact Neurological: Yes: Alert, Oriented Psychiatric: Yes: Alert, Oriented Labs: CBC, BMP 12/11/18 05:30 12/11/18 05:30 Microbiology 12/09/18 10:10 Urine - Urine Clean Catch Urine Culture - Final Normal Urogenital Deepthi Problem List - Problems (1) HTN (hypertension) Assessment/Plan: -Norvasc, Atenolol -low Na diet Code(s): I10 - ESSENTIAL (PRIMARY) HYPERTENSION (2) Epigastric pain Assessment/Plan: -GI and Surgery on board -Abd US shows gallbladder is distended and contains multiple stones, positive sonographic murphys sign -POD #1 Lap cholecystectomy -IV hydration -Lipase 213 -pain control -Simethicone PRN -Colace HS Code(s): R10.13 - EPIGASTRIC PAIN Assessment/Plan see problem list dvt ppx
[2018-12-11] MEDS: SIMETHICONE 80 MG TAB.CHEW (FP) PO PRN ×2 (14:41→21:46)
[2018-12-11] MEDS: LACTATED RINGERS SOLUTION 1,000 ML IV SCH (17:42)
[2018-12-11] MEDS ORDERED: DOCUSATE SODIUM 100 MG CAPSULE (FP) PO SCH (22:00)
[2018-12-12 07:06] LABS: HEMATOCRIT 34.2 % (32.4-45.2); HEMOGLOBIN 11.7 GM/dL (10.7-15.3); MCH 29.9 pg (25.7-33.7); MCHC 34.1 g/dl (32.0-36.0); MEAN CELL VOLUME 87.8 fl (80-96); MEAN PLT VOLUME 10.4 fl (7.5-11.1); PLATELET COUNT 252 K/MM3 (134-434); RDW 13.5 % (11.6-15.6); WHITE BLOOD COUNT 6.9 K/mm3 (4.0-10.0)
[2018-12-12 07:34] LABS: ALBUMIN 3.5 g/dl (3.4-5.0); BILIRUBIN,TOTAL 1.1 mg/dL (0.2-1); BLOOD UREA NITROGEN 16.8 mg/dL (7-18); CALCIUM 8.8 mg/dL (8.5-10.1); CREATININE 0.8 mg/dL (0.55-1.3); POTASSIUM 3.8 mmol/L (3.5-5.1); TOT PROT 6.6 g/dl (6.4-8.2)
--- NOTE | 2018-12-12 09:32 | DS ---
Physical Examination Vital Signs: Vital Signs Temperature 97.5 F L 12/12/18 06:02 Pulse Rate 63 12/12/18 06:02 Respiratory Rate 18 12/12/18 06:02 Blood Pressure 124/64 12/12/18 06:02 O2 Sat by Pulse Oximetry (%) 97 12/11/18 21:00 Findings/Remarks: Laboratory Tests 12/08/18 12/08/18 12/08/18 23:40 23:40 23:40 WBC 5.7 Corrected WBC (auto) RBC 3.99 Hgb 11.8 Hct 35.2 MCV 88.2 MCH 29.5 MCHC 33.5 RDW 13.3 Plt Count 231 MPV 10.3 Absolute Neuts (auto) 3.9 Neutrophils % 69.4 Lymphocytes % 21.9 Monocytes % 6.1 Eosinophils % 1.4 Basophils % 1.2 Nucleated RBC % 0 Platelet Estimate Platelet Comment Sodium 145 Potassium 4.1 Chloride 112 H Carbon Dioxide 27 Anion Gap 6 L BUN 12.9 Creatinine 0.8 Est GFR (CKD-EPI)AfAm 90.30 Est GFR (CKD-EPI)NonAf 77.91 Random Glucose 112 H Calcium 8.5 Phosphorus Magnesium Total Bilirubin 0.4 AST 15 ALT 24 Alkaline Phosphatase 67 Creatine Kinase 65 Troponin I < 0.02 Total Protein 7.0 Albumin 3.6 Lipase 213 Urine Color Urine Appearance Urine pH Ur Specific [place] Urine Protein Urine Glucose (UA) Urine Ketones Urine Blood Urine Nitrite Urine Bilirubin Urine Urobilinogen Ur Leukocyte Esterase 12/08/18 12/09/18 12/09/18 23:40 08:45 08:45 WBC Cancelled Corrected WBC (auto) Cancelled RBC Cancelled Hgb Cancelled Hct Cancelled MCV Cancelled MCH Cancelled MCHC Cancelled RDW Cancelled Plt Count Cancelled MPV Cancelled Absolute Neuts (auto) Cancelled Neutrophils % Cancelled Lymphocytes % Cancelled Monocytes % Cancelled Eosinophils % Cancelled Basophils % Cancelled Nucleated RBC % Cancelled Platelet Estimate Cancelled Platelet Comment Cancelled Sodium 144 Potassium 4.4 Chloride 111 H Carbon Dioxide 26 Anion Gap 7 L BUN 7.4 Creatinine 0.8 Est GFR (CKD-EPI)AfAm 90.30 Est GFR (CKD-EPI)NonAf 77.91 Random Glucose 91 Calcium 9.0 Phosphorus 3.1 Magnesium 2.5 H Total Bilirubin 0.7 AST 18 ALT 24 Alkaline Phosphatase 69 Creatine Kinase Troponin I Total Protein 7.0 Albumin 3.6 Lipase Cancelled Urine Color Urine Appearance Urine pH Ur Specific [place] Urine Protein Urine Glucose (UA) Urine Ketones Urine Blood Urine Nitrite Urine Bilirubin Urine Urobilinogen Ur Leukocyte Esterase 12/09/18 12/09/18 12/11/18 10:10 10:11 05:30 WBC 5.2 8.5 Corrected WBC (auto) RBC 4.00 3.86 Hgb 12.0 11.8 Hct 35.0 33.5 MCV 87.5 86.7 MCH 30.1 30.5 MCHC 34.4 35.2 RDW 13.5 13.4 Plt Count 239 242 MPV 10.4 10.4 Absolute Neuts (auto) 3.3 Neutrophils % 64.1 Lymphocytes % 28.4 D Monocytes % 5.0 Eosinophils % 1.2 Basophils % 1.3 Nucleated RBC % 0 Platelet Estimate Platelet Comment Sodium Potassium Chloride Carbon Dioxide Anion Gap BUN Creatinine Est GFR (CKD-EPI)AfAm Est GFR (CKD-EPI)NonAf Random Glucose Calcium Phosphorus Magnesium Total Bilirubin AST ALT Alkaline Phosphatase Creatine Kinase Troponin I Total Protein Albumin Lipase Urine Color Yellow Urine Appearance Clear Urine pH 8.5 H Ur Specific [place] 1.009 L Urine Protein Negative Urine Glucose (UA) Negative Urine Ketones Negative Urine Blood Negative Urine Nitrite Negative Urine Bilirubin Negative Urine Urobilinogen 0.2 Ur Leukocyte Esterase Negative 12/11/18 12/12/18 12/12/18 05:30 06:40 06:40 WBC 6.9 Corrected WBC (auto) RBC 3.90 Hgb 11.7 Hct 34.2 MCV 87.8 MCH 29.9 MCHC 34.1 RDW 13.5 Plt Count 252 MPV 10.4 Absolute Neuts (auto) Neutrophils % Lymphocytes % Monocytes % Eosinophils % Basophils % Nucleated RBC % Platelet Estimate Platelet Comment Sodium 142 142 Potassium 4.1 3.8 Chloride 107 108 H Carbon Dioxide 29 29 Anion Gap 7 L 5 L BUN 12.2 16.8 Creatinine 0.8 0.8 Est GFR (CKD-EPI)AfAm 90.30 90.30 Est GFR (CKD-EPI)NonAf 77.91 77.91 Random Glucose 93 108 H Calcium 9.0 8.8 Phosphorus Magnesium Total Bilirubin 1.1 H AST 33 ALT 42 Alkaline Phosphatase 64 Creatine Kinase Troponin I Total Protein 6.6 Albumin 3.5 Lipase Urine Color Urine Appearance Urine pH Ur Specific [place] Urine Protein Urine Glucose (UA) Urine Ketones Urine Blood Urine Nitrite Urine Bilirubin Urine Urobilinogen Ur Leukocyte Esterase Active Medications Generic Name Dose Route Start Last Admin Trade Name Gurvinder PRN Reason Stop Dose Admin Acetaminophen 650 mg 12/10/18 11:50 Tylenol - PO Q4H PRN PAIN Amlodipine Besylate 10 mg 12/11/18 10:00 12/11/18 10:18 Norvasc - PO 10 mg DAILY WILFRED Administration Atenolol 50 mg 12/11/18 10:00 12/11/18 10:18 Tenormin - PO 50 mg DAILY WILFRED Administration Docusate Sodium 300 mg 12/11/18 22:00 12/11/18 21:46 Colace - PO 300 mg HS WILFRED Administration Fentanyl 50 mcg 12/10/18 11:40 Sublimaze Injection - IVPUSH [id number] PRN PAIN-PACU ORDER X 4 DOSES ONLY Ondansetron HCl 4 mg 12/10/18 11:40 Zofran Injection IVPUSH Q6H PRN NAUSEA AND/OR VOMITING Oxycodone HCl 5 mg 12/10/18 11:44 12/10/18 20:37 Roxicodone - PO 5 mg Q4H PRN Administration PAIN LEVEL 6-10 Promethazine HCl 12.5 mg 12/10/18 11:40 Phenergan Injection - IVPB Q6H PRN NAUSEA-FOR RESCUE AFTER 15 MIN Simethicone 80 mg 12/10/18 20:53 12/11/18 21:46 Mylicon - PO 80 mg Q4H PRN Administration GAS Microbiology 12/09/18 10:10 Urine - Urine Clean Catch Urine Culture - Final Normal Urogenital Deepthi Constitutional: Yes: No Distress, Calm Eyes: Yes: Conjunctiva Clear HENT: Yes: Atraumatic Cardiovascular: Yes: Regular Rate and Rhythm Respiratory: Yes: Regular, CTA Bilaterally Gastrointestinal: Yes: Normal Bowel Sounds, Soft Musculoskeletal: Yes: WNL Extremities: Yes: WNL Edema: No Wound/Incision: Yes: Dressing Dry and Intact Neurological: Yes: Alert, Oriented Psychiatric: Yes: Alert, Oriented Labs: CBC, BMP 12/12/18 06:40 12/12/18 06:40 Microbiology 12/09/18 10:10 Urine - Urine Clean Catch Urine Culture - Final Normal Urogenital Deepthi Discharge Summary Problems reviewed: Yes Reason For Visit: CHOLECYSTITIS Current Active Problems Cholelithiases (Acute) Epigastric pain (Acute) HTN (hypertension) (Acute) Nausea (Acute) RUQ abdominal tenderness (Acute) S/P laparoscopic cholecystectomy (Acute) Hospital Course: Patient is a 63 y/o female with past medical history of HTN. She presented to ER with complaints of abdominal pain for 2 weeks. Pain was described as intermittent and associated with food intake. Pain noted to be mid-epigastric and RUQ. US shows cholelithiasis and surgery consult was placed. Patient underwent lap cholecystectomy with no adverse effects. Tolerating PO intake and has BM. Instructed to follow up with PCP in 1 week and Surgery within 7-10 days. Condition: Stable - Instructions Diet, Activity, Other Instructions: Follow up with PCP in 1 week Follow up with Surgery in 1 week continue with medication as prescribed return to ER if develop severe pain, respiratory distress, chest pain, fever Referrals: Chris Castle MD [Staff Physician] - Daysi Estes MD [Staff Physician] - Disposition: HOME - Home Medications Comprehensive Discharge Medication List: Ambulatory Orders Amlodipine Besylate 10 mg PO DAILY 12/09/18 Atenolol [Tenormin] 50 mg PO DAILY 12/09/18 Acetaminophen [Tylenol .Regular Strength -] 650 mg PO Q4H PRN #45 tablet Docusate Sodium [Colace -] 300 mg PO HS #90 capsule 12/12/18 Simethicone [Mylicon -] 80 mg PO Q4H PRN #45 tab.chew 12/12/18
[2018-12-12] MEDS: amLODIPine BESYLATE 10 MG TABLET (FP) PO SCH (10:21)
[2018-12-12] MEDS: ATENOLOL 50 MG TABLET (FP) PO SCH (10:21)
[2018-12-12 10:46] VITALS: BP 136/74; PULSE 64; TEMP 98.5
--- NOTE | 2018-12-13 16:19 | PATH ---
Surgical Pathology Report Patient Name: ARTURO TONG Med. Rec. #: [id number] /Age/Gender: 1955 (Age: 63) / F Account: [id number] Location: [facility] MED/SURG Taken: 12/10/2018 Received: 12/10/2018 Reported: 12/12/2018 Physicians: Daysi Estes M.D. Specimen(s) Received GALLBLADDER Clinical History Cholecystitis Final Diagnosis GALLBLADDER, CHOLECYSTECTOMY: CHRONIC CHOLECYSTITIS AND CHOLELITHIASIS. ONE REACTIVE LYMPH NODE. Electronically Signed Krysten Jimenes M.D. Gross Description Received in formalin, labeled "gallbladder," is a 8.1 x 2.5 x 2.5 cm. gallbladder with a 0.2 cm. in length portion of cystic duct attached. The outer surface varies from smooth to shaggy. A pericystic node measuring 1 cm in greatest dimension is present. The lumen contains with bile and multiple stones, the largest measures 2.0 cm in greatest dimension. The mucosa shows a velvety surface. The wall of the gallbladder measures 0.2cm. in thickness. Exterior Interior Specialist sections are submitted in one cassette. KWS/12/10/2018 sulki/12/10/2018
== END 2018-12-12 10:47 | disposition home or self-care (01) | DRG 263 ==
LOC: JER 21:48 → JERBED 12-09 03:50 → J7W 12-09 06:18
PROVIDERS: ADMIT Internal Medicine; ATTEND Family Medicine
PROC: 0FT44ZZ Resection of Gallbladder, Percutaneous Endoscopic Approach (ICD-10-PCS; principal; 2018-12-10 10:00)
DX: K80.12 Calculus of gallbladder with acute and chronic cholecystitis without obstruction (principal); I10 Essential (primary) hypertension; E66.9 Obesity, unspecified; Z68.25 Body mass index [BMI] 25.0-25.9, adult; I51.7 Cardiomegaly; R10.13 Epigastric pain
CPT/HCPCS: 36415; 71046-TC-FY; 76705-TC; 80048; 80053; 81003; 82550; 83690; 83735; 84100; 84484; 85025; 85027; 87086; 93005; 93010; 94760; 99284-25; G0008; Q2036

== ENCOUNTER 2020-03-28 10:59 | Emergency (ER) | payer OTHER ==
[2020-03-28 11:36] VITALS: BP 168/70; PULSE 60; TEMP 97.6; BMI 27.4
== END 2020-03-28 13:42 | disposition home or self-care (01) ==
LOC: JERFT 10:59 → JER 10:59 → JERFT 13:42
DX: M25.511 Pain in right shoulder (principal)
CPT/HCPCS: 73030-TC-RT-FY; 99284-25

== ENCOUNTER 2021-01-30 10:41 | Emergency (ER) | payer OTHER ==
[2021-01-30 10:45] VITALS: BP 151/70; PULSE 78; TEMP 98.5; BMI 28.3
[2021-01-30] MEDS ORDERED: IBUPROFEN 600 MG TABLET (FP) PO ONE ×2 (11:15→11:17)
[2021-01-30] MEDS ORDERED: METHOCARBAMOL 500 MG TABLET PO ONE (11:15)
[2021-01-30] MEDS ORDERED: METHOCARBAMOL 500 MG TABLET ONE (11:17)
== END 2021-01-30 11:29 | disposition home or self-care (01) ==
LOC: JERFT 10:41
DX: M62.830 Muscle spasm of back (principal)
CPT/HCPCS: 99283-25

== ENCOUNTER 2022-11-29 10:17 | Emergency (ER) | payer OTHER ==
[2022-11-29 10:22] VITALS: BP 128/51; PULSE 58; RESP 18; TEMP 98; BMI 26.6
[2022-11-29] MEDS ORDERED: IBUPROFEN 400 MG TABLET (FP) PO ONE ×2 (10:49→11:11)
[2022-11-29] MEDS ORDERED: ACETAMINOPHEN 325 MG TABLET (FP) PO ONE (10:49)
[2022-11-29] MEDS ORDERED: ACETAMINOPHEN 325 MG TABLET (FP) ONE (11:11)
== END 2022-11-29 12:34 | disposition home or self-care (01) ==
LOC: JERFT 10:17
DX: M54.50 Low back pain, unspecified (principal); M79.672 Pain in left foot; M79.671 Pain in right foot; S39.012A Strain of muscle, fascia and tendon of lower back, initial encounter; X58.XXXA Exposure to other specified factors, initial encounter
CPT/HCPCS: 72100-TC-FY; 99283-25

== ENCOUNTER 2023-05-29 10:59 | Emergency (ER) | payer OTHER ==
[2023-05-29 11:05] VITALS: BP 129/63; PULSE 85; RESP 18; TEMP 98; BMI 26.6
[2023-05-29 12:41] LABS: PH,URINE 6.5 (5.0-8.0); URINE BILIRUBIN NEGATIVE (NEGATIVE); URINE COLOR YELLOW; URINE GLUCOSE (UA) NEGATIVE (NEGATIVE); URINE KETONE NEGATIVE (NEGATIVE); URINE LEUK ESTERASE NEGATIVE (NEGATIVE); URINE NITRITE NEGATIVE (NEGATIVE); URINE PROTEIN NEGATIVE (NEGATIVE); URINE UROBILINOGEN 0.2 mg/dL (0.2-1.0)
[2023-05-29 12:42] LABS: BASO % 0.9 % (0-2.0); EOS % 1.5 % (0-4.5); HEMATOCRIT 37.3 % (32.4-45.2); HEMOGLOBIN 12.6 GM/dL (10.7-15.3); LYMPH % 21.4 % (8-40); MCH 29.2 pg (25.7-33.7); MCHC 33.7 g/dl (32.0-36.0); MEAN CELL VOLUME 86.8 fl (80-96); MEAN PLT VOLUME 10.1 fl (7.5-11.1); MONO % 5.5 % (3.8-10.2); NEUT % 70.7 % (42.8-82.8); PLATELET COUNT 308 10^3/uL (134-434); RBC 4.29 M/mm3 (3.60-5.2); WHITE BLOOD COUNT 6.5 K/mm3 (4.0-10.0)
[2023-05-29 13:10] LABS: POTASSIUM 4.9 mmol/L (3.5-5.1)
[2023-05-29 13:13] LABS: ALBUMIN 3.8 g/dl (3.4-5.0); BLOOD UREA NITROGEN 13.8 mg/dL (7-18); CALCIUM 9.3 mg/dL (8.5-10.1)
[2023-05-29 13:16] LABS: CREATININE 0.8 mg/dL (0.55-1.3)
[2023-05-29 13:18] LABS: BILIRUBIN,TOTAL 0.7 mg/dL (0.2-1); TOT PROT 7.5 g/dl (6.4-8.2)
[2023-05-29 13:59] LABS: URINE APPEARANCE CLEAR
[2023-05-29] MEDS ORDERED: IBUPROFEN 600 MG TABLET (FP) PO ONE (14:21)
[2023-05-29] MEDS ORDERED: LIDOCAINE 4% PATCH TP ONE (14:21)
[2023-05-29] MEDS ORDERED: ACETAMINOPHEN 325 MG TABLET (FP) ONE (14:21)
[2023-05-29] MEDS ORDERED: CYCLOBENZAPRINE HCL 5 MG TABLET ONE (14:22)
[2023-05-29] MEDS: IBUPROFEN 600 MG TABLET (FP) PO ONE (14:25)
[2023-05-29] MEDS: ACETAMINOPHEN 325 MG TABLET (FP) PO ONE (14:25)
[2023-05-29] MEDS: LIDOCAINE 4% PATCH TP ONE (14:25)
[2023-05-29] MEDS: CYCLOBENZAPRINE HCL 10 MG TABLET (FP) PO ONE (14:25)
[2023-05-29] MEDS ORDERED: LIDOCAINE PATCH REMOVAL MC SCH (22:00)
== END 2023-05-29 14:41 | disposition home or self-care (01) ==
LOC: JERFT 10:59
DX: M54.6 Pain in thoracic spine (principal)
CPT/HCPCS: 36415; 71046-TC-FY; 80053; 81003; 84484; 85025; 87086; 93005; 93010; 99285-25

== ENCOUNTER 2023-07-25 09:21 | Emergency (ER) | payer OTHER ==
[2023-07-25 09:30] VITALS: BP 136/70; PULSE 86; RESP 16; TEMP 97.6; BMI 26.6
[2023-07-25] MEDS ORDERED: LIDOCAINE 4% PATCH TP ONE (10:06)
[2023-07-25] MEDS ORDERED: METOCLOPRAMIDE HCL INJECTION 10 MG/2 ML VIAL ONE (10:06)
[2023-07-25] MEDS ORDERED: ACETAMINOPHEN INJECTION 100 ML IVPB ONE (10:06)
[2023-07-25] MEDS: METOCLOPRAMIDE HCL INJECTION 10 MG/2 ML VIAL IVPUSH ONE (10:23)
[2023-07-25] MEDS: ACETAMINOPHEN 1000 MG/100 ML BAG IVPB ONE (10:23)
[2023-07-25] MEDS: LIDOCAINE 4% PATCH TP ONE (10:24)
[2023-07-25 10:37] LABS: BASO % 0.8 % (0-2.0); EOS % 0.7 % (0-4.5); HEMATOCRIT 37.3 % (32.4-45.2); LYMPH % 14.8 % (8-40); MCHC 34.8 g/dl (32.0-36.0); MEAN CELL VOLUME 86.3 fl (80-96); MEAN PLT VOLUME 9.9 fl (7.5-11.1); MONO % 6.1 % (3.8-10.2); NEUT % 77.6 % (42.8-82.8); PLATELET COUNT 329 10^3/uL (134-434); RBC 4.32 M/mm3 (3.60-5.2); RDW 14.2 % (11.6-15.6); WHITE BLOOD COUNT 7.9 K/mm3 (4.0-10.0)
[2023-07-25 10:54] LABS: POTASSIUM 4.6 mmol/L (3.5-5.1)
[2023-07-25 10:56] LABS: CALCIUM 9.1 mg/dL (8.5-10.1)
[2023-07-25 10:57] LABS: ALBUMIN 3.6 g/dl (3.4-5.0)
[2023-07-25 11:00] LABS: CREATININE 0.9 mg/dL (0.55-1.3)
[2023-07-25 11:01] LABS: BILIRUBIN,TOTAL 0.7 mg/dL (0.2-1)
[2023-07-25 11:02] LABS: TOT PROT 7.7 g/dl (6.4-8.2)
[2023-07-25] MEDS ORDERED: LIDOCAINE PATCH REMOVAL MC ONE (22:00)
== END 2023-07-25 12:14 | disposition home or self-care (01) ==
LOC: JER 09:21
PROC: 3E030NZ Introduction of Analgesics, Hypnotics, Sedatives into Peripheral Vein, Open Approach (ICD-10-PCS; principal; 2023-07-25)
PROC: 3E030GC Introduction of Other Therapeutic Substance into Peripheral Vein, Open Approach (ICD-10-PCS; 2023-07-25)
PROC: 3E030GC Introduction of Other Therapeutic Substance into Peripheral Vein, Open Approach (ICD-10-PCS; 2023-07-25)
DX: R51.9 Headache, unspecified (principal); H57.12 Ocular pain, left eye; R20.2 Paresthesia of skin
CPT/HCPCS: 36415; 70450-TC; 71045-TC-FY; 80053; 84484; 85025; 85651; 86140; 93005; 93010; 96374; 96375; 99285-25; J0131

== ENCOUNTER 2024-08-16 09:36 | Emergency (ER) | payer OTHER ==
[2024-08-16 09:49] VITALS: BP 142/56; PULSE 60; RESP 20; TEMP 98.2; BMI 28.8
== END 2024-08-16 10:40 | disposition home or self-care (01) ==
LOC: MERGE 09:36 → JERFT 09:36
DX: L30.4 Erythema intertrigo (principal); B37.9 Candidiasis, unspecified; L29.9 Pruritus, unspecified
CPT/HCPCS: 99283-25